=== PATIENT | male | born 1965 | race Caucasian/White ===

== ENCOUNTER 2018-03-13 11:46 | Emergency (ER) | payer OTHER, MEDICAID ==
[~2018-03-13] VITALS: Ht 175.3 cm; Wt 123.4 kg
[2018-03-13 11:48] VITALS: BP_SYST 157
[2018-03-13] MEDS ORDERED: DIPH-TET-PERTUS Vaccine 0.5 ML VIAL (ADACEL) I.M. ONE (13:00)
[2018-03-13 13:24] VITALS: BP_SYST 148
== END 2018-03-13 13:24 | disposition home or self-care (01) ==
LOC: SED 11:46
DX: S01.81XA Laceration without foreign body of other part of head, initial encounter (principal); I10 Essential (primary) hypertension; Z88.1 Allergy status to other antibiotic agents; Z88.2 Allergy status to sulfonamides; Z88.0 Allergy status to penicillin; Z88.8 Allergy status to other drugs, medicaments and biological substances; W26.8XXA Contact with other sharp object(s), not elsewhere classified, initial encounter; Y93.89 Activity, other specified; Y92.89 Other specified places as the place of occurrence of the external cause; Y99.8 Other external cause status
CPT/HCPCS: 90715; 99283

== ENCOUNTER 2020-02-07 17:37 | Emergency (ER) | payer MEDICARE, MEDICAID ==
[~2020-02-07] VITALS: Ht 172.7 cm; Wt 120.2 kg
[~2020-02-07 17:37] MED LIST: ALBMDI INH; AMLO5TAB4 PO; ASPI-1155 PO; DEPAK250 PO; EZET10TA30 PO; FURO-150 PO; LACT1CAP72 PO; LEVO750T45 PO; LOSA100T3 PO; METO-442 PO; OMEP20CA15 PO
[2020-02-07 17:53] VITALS: BP_SYST 135
[2020-02-07] MEDS ORDERED: DEXAMETHASONE SOD PHOSPHATE 4 MG/ML VIAL IVP ONE (19:15)
[2020-02-07 19:42] VITALS: BP_SYST 109
== END 2020-02-07 19:42 | disposition home or self-care (01) ==
LOC: SED 17:37
DX: U07.1 COVID-19 (principal); R05 Cough; I11.0 Hypertensive heart disease with heart failure; I50.9 Heart failure, unspecified; Z90.49 Acquired absence of other specified parts of digestive tract; Z79.899 Other long term (current) drug therapy; Z79.82 Long term (current) use of aspirin; Z88.1 Allergy status to other antibiotic agents; Z88.2 Allergy status to sulfonamides; Z88.0 Allergy status to penicillin; Z88.6 Allergy status to analgesic agent; Z20.828 Contact with and (suspected) exposure to other viral communicable diseases
CPT/HCPCS: 36415; 71045; 87426; 96374; 99284; J1100

== ENCOUNTER 2020-12-03 20:46 | Emergency (ER) | payer MEDICARE, MEDICAID ==
[~2020-12-03] VITALS: Ht 172.7 cm; Wt 129.3 kg
[2020-12-03 21:00] VITALS: BP_SYST 156
--- NOTE | 2020-12-03 21:00 | NUR ---
Patient triaged and placed in waiting room. VSS and patient appears in no acute distress at this time. Accompanied by FAMILY, awaiting available bed, and MD notified of need for MSE.
--- NOTE | 2020-12-03 21:48 | NUR ---
Dr. Dewitt at chair side in triage for MSE.
[2020-12-03] MEDS ORDERED: GABA-529 PO (21:56)
--- NOTE | 2020-12-03 22:00 | NUR ---
PATIENT AAOX4 AND AMBULATORY C/O RIGHT LEG PAIN X 1 MONTH. WAS PREVIOUS SEEN FOR INFECTION TO HIS TESTICLES AND FINISHED ABTX TX. CURRENTLY STATING 10/10 ON THE PAIN SCALE. HISTORY OF DM, HTN, HLD, AND SEIZURES. VSS. NO RELIEF WITH MEDS AND HEAT.
[2020-12-03 22:23] VITALS: BP_SYST 156
--- NOTE | 2020-12-03 22:24 | NUR ---
Patient given written and verbal discharge instructions and verbalizes understanding. dr. cuate LENTZ MD discussed with patient the results and treatment provided. Patient in stable condition. ID arm band removed. Rx of neurontin given. Patient educated on pain management and to follow up with PMD. Pain Scale 0/10. Opportunity for questions provided and answered. Medication side effect fact sheet provided.
== END 2020-12-03 22:23 | disposition home or self-care (01) ==
LOC: SED 20:46
DX: M54.31 Sciatica, right side (principal); I11.0 Hypertensive heart disease with heart failure; I50.9 Heart failure, unspecified; Z88.0 Allergy status to penicillin; Z88.1 Allergy status to other antibiotic agents; Z88.2 Allergy status to sulfonamides; Z88.8 Allergy status to other drugs, medicaments and biological substances; Z79.899 Other long term (current) drug therapy
CPT/HCPCS: 99283

== ENCOUNTER 2020-12-25 21:16 | Emergency (ER) | payer MEDICARE, MEDICAID ==
[~2020-12-25] VITALS: Ht 172.7 cm; Wt 125.2 kg
[~2020-12-25 21:16] MED LIST changes: +GABA-529 PO
[2020-12-25 21:40] VITALS: BP_SYST 146
--- NOTE | 2020-12-25 21:50 | NUR ---
PT TO REMAIN IN THE ER LOBBY UNTIL ER BED BECOMES AVAILABLE.
--- NOTE | 2020-12-25 21:55 | NUR ---
PT AAO AND CAME IN WITH CAME TO REPORT WORSENING RIGHT LEG PAIN X 1 MONTH. PT REPORTS THAT HE SAW PMD AND THAT HE WAS TOLD IT WAS R/T HIS CHRONIC BACK PAIN. PT REPORTS PAIN 5/10 ON PAIN SCALE.
--- NOTE | 2020-12-25 22:20 | NUR ---
DR. COX TO TRIAGE TO ASSESS.
[2020-12-25] MEDS ORDERED: HYDROcodone/ACETAMIN 5-325 MG TAB (NORCO/ VICODIN) PO ONE (22:45)
[2020-12-25] MEDS ORDERED: KETOROLAC TROMETHAMINE 30 MG VIAL IM ONE (22:45)
[2020-12-26] MEDS ORDERED: ACET1TAB23 PO (00:02)
[2020-12-26] MEDS ORDERED: PRED20TA PO (00:02)
--- NOTE | 2020-12-26 00:08 | NUR ---
Patient given written and verbal discharge instructions and verbalizes understanding. DR. BROOKE LENTZ MD discussed with patient the results and treatment provided. Patient in stable condition. ID arm band removed. Rx PER MD. Patient educated on pain management and to follow up with PMD. Pain Scale 2/10. Opportunity for questions provided and answered. Medication side effect fact sheet provided.
[2020-12-26 00:09] VITALS: BP_SYST 146
== END 2020-12-26 00:08 | disposition home or self-care (01) ==
LOC: SED 21:16
DX: M54.31 Sciatica, right side (principal); I11.0 Hypertensive heart disease with heart failure; I50.9 Heart failure, unspecified; Z88.0 Allergy status to penicillin; Z88.1 Allergy status to other antibiotic agents; Z88.2 Allergy status to sulfonamides; Z88.8 Allergy status to other drugs, medicaments and biological substances; Z79.899 Other long term (current) drug therapy
CPT/HCPCS: 93971; 96372; 99284; J1885

== ENCOUNTER 2021-04-04 16:38 | Emergency (ER) | payer MEDICARE, MEDICAID ==
[~2021-04-04] VITALS: Ht 172.7 cm; Wt 120.2 kg
[~2021-04-04 16:38] MED LIST changes: +PRED20TA PO
[2021-04-04 17:30] VITALS: BP_SYST 152
--- NOTE | 2021-04-04 17:35 | NUR ---
Patient triaged and placed in waiting room. VSS and patient appears in no acute distress at this time. Accompanied by self, awaiting available bed, and MD notified of need for MSE.
--- NOTE | 2021-04-04 17:36 | NUR ---
Patient to [facility] for evaluation. Side rails up.
--- NOTE | 2021-04-04 17:37 | NUR ---
PATIENT BROUGHT IN FROM HOME AMBULATING WITH CANE COMPLAINING OF RIGHT LEG SHARP SHOOTING PAIN. PAIN 10/. 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 DENIES ANY TRAUMA. NO OTHER COMPLAINTS/INJURIES PER PATIENT OR NOTED.
[2021-04-04] MEDS ORDERED: MORPHINE 4 MG INJ. 4 MG/ML VIAL IM ONE (18:15)
[2021-04-04] MEDS ORDERED: KETOROLAC TROMETHAMINE 60 MG/2 ML VIAL IM ONE (18:15)
--- NOTE | 2021-04-04 18:16 | NUR ---
ER at bedside examining patient.
[2021-04-04] MEDS ORDERED: NAPR-1172 PO (18:48)
--- NOTE | 2021-04-04 18:55 | NUR ---
Patient given written and verbal discharge instructions and verbalizes understanding. ER MD discussed with patient the results and treatment provided. Patient in stable condition. ID arm band removed. Rx of Naproxen given. Patient educated on pain management and to follow up with PMD. Pain Scale 0. Opportunity for questions provided and answered. Medication side effect fact sheet provided. Pt discharged by Dr. Harvey
== END 2021-04-04 18:58 | disposition home or self-care (01) ==
LOC: SED 16:38
DX: S33.5XXA Sprain of ligaments of lumbar spine, initial encounter (principal); I11.0 Hypertensive heart disease with heart failure; I50.9 Heart failure, unspecified; Z88.0 Allergy status to penicillin; Z88.8 Allergy status to other drugs, medicaments and biological substances; Z79.899 Other long term (current) drug therapy; X50.9XXA Other and unspecified overexertion or strenuous movements or postures, initial encounter; Y93.89 Activity, other specified; Y92.89 Other specified places as the place of occurrence of the external cause; Y99.8 Other external cause status
CPT/HCPCS: 96372; 99284; J1885; J2270

== ENCOUNTER 2023-06-05 11:34 | Emergency (ER) | payer BC, MEDICAID ==
[~2023-06-05] VITALS: Ht 172.7 cm; Wt 122.5 kg
[~2023-06-05 11:34] MED LIST changes: -LEVO750T45 PO; +LEVO750T64 PO; +LOSA-415 PO; -LOSA100T3 PO; +NAPR-1172 PO
[2023-06-05 11:37] VITALS: BP_SYST 160; PULSE 107; RESP 20; TEMP 98.2; O2SAT 100
[2023-06-05 12:26] LABS: BASOPHILS # (AUTO) 0.1 K/uL (0.0-0.2); BASOPHILS % (AUTO) 0.6 % (0.0-2.0); EOSINOPHILS # (AUTO) 0.2 K/uL (0.0-0.4); EOSINOPHILS % (AUTO) 2.5 % (0.0-4.0); HEMATOCRIT 45.1 % (36-54); HEMOGLOBIN 15.4 g/dL (14.0-18.0); LYMPHOCYTES # (AUTO) 1.4 K/uL (1.0-5.5); LYMPHOCYTES % (AUTO) 16.6 % (20.5-51.5); MEAN CORPUSCULAR HEMOGLOBIN 31 pg (27-31); MEAN CORPUSCULAR HGB CONC 34 % (32-36); MEAN CORPUSCULAR VOLUME 91 fL (79.0-98.0); MONOCYTES % (AUTO) 12.3 % (1.7-9.3); NEUTROPHILS # (AUTO) 5.6 K/uL (1.8-7.7); PLATELET COUNT (AUTO) 311 K/uL (130-430); RED BLOOD CELL COUNT(AUTO) 4.96 MIL/uL (4.2-6.2); RED CELL DISTRIBUTION WIDTH 14.1 % (9.0-15.0); WHITE BLOOD COUNT (AUTO) 8.2 K/uL (4.8-10.8)
[2023-06-05 12:38] LABS: ANION GAP 7 (5-15); CALCIUM 9.2 mg/dL (8.4-11.0); CARBON DIOXIDE 29 mmol/L (23-29); CHLORIDE 102 mmol/L (98-107); CREATININE 0.97 mg/dL (0.55-1.30); GFR AFRICAN AMERICAN 102 mL/min (>90); GFR NON AFRICAN-AMERICAN 84 mL/min (>90); GLUCOSE 108 mg/dL (74-106); POTASSIUM 3.9 mmol/L (3.5-5.1); SODIUM SERUM 138 mmol/L (136-145); UREA NITROGEN, BLOOD 12 mg/dL (8-21)
[2023-06-05 13:23] LABS: INFLUENZA TYPE A Negative (NEGATIVE); INFLUENZA TYPE B NEGATIVE (NEGATIVE)
[2023-06-05] MEDS ORDERED: FENO145T PO (13:24)
[2023-06-05] MEDS ORDERED: ROSU10TA2 PO (13:24)
[2023-06-05] MEDS ORDERED: FENO43CA PO (13:24)
[2023-06-05 13:33] LABS: COVID19 ANTIGEN SOFIA FIA POSITIVE (NEGATIVE)
[2023-06-05] MEDS ORDERED: BROM118S61 PO (13:38)
[2023-06-05] MEDS ORDERED: NIRM1TAB PO (13:38)
[2023-06-05 14:21] VITALS: BP_SYST 127; PULSE 96; RESP 16; TEMP 97.5; O2SAT 97
== END 2023-06-05 14:20 | disposition home or self-care (01) ==
LOC: SED 11:34
DX: U07.1 COVID-19 (principal); R07.89 Other chest pain; I50.9 Heart failure, unspecified; E11.9 Type 2 diabetes mellitus without complications; I11.0 Hypertensive heart disease with heart failure; E78.5 Hyperlipidemia, unspecified; Z98.890 Other specified postprocedural states; Z90.89 Acquired absence of other organs; Z90.49 Acquired absence of other specified parts of digestive tract; Z88.0 Allergy status to penicillin; Z88.8 Allergy status to other drugs, medicaments and biological substances; Z79.899 Other long term (current) drug therapy
CPT/HCPCS: 36415; 71045; 80048; 83880; 84484; 85025; 93005; 99285